=== PATIENT | female | born 1965 | race Caucasian/White ===

== ENCOUNTER → 2017-02-03 | Outpatient (CLI) | payer OTHER | LOC: MAMMO 10:06 | DX: Z12.31 Encounter for screening mammogram for malignant neoplasm of breast (principal) | CPT/HCPCS: G0202 ==

== ENCOUNTER → 2018-10-04 | Outpatient (CLI) | payer BC | LOC: MAMMO 16:00 | DX: Z12.31 Encounter for screening mammogram for malignant neoplasm of breast (principal) ==

== ENCOUNTER → 2019-07-18 | Outpatient (CLI) | payer BC ==
[2019-07-18 13:00] LABS: URINE APPEARANCE HAZY; URINE COLOR YELLOW; URINE PROTEIN(semi-quant) TRACE mg/dL (NEGATIVE)
[2019-07-18 13:01] LABS: URINE BILIRUBIN NEGATIVE (NEGATIVE); URINE BLOOD TRACE (NEGATIVE); URINE GLUCOSE NEGATIVE (NEGATIVE); URINE KETONE NEGATIVE (NEGATIVE); URINE LEUKOCYTE ESTERASE TRACE (NEGATIVE); URINE NITRATE NEGATIVE (NEGATIVE); URINE UROBILINOGEN NORMAL (NORMAL)
[2019-07-18 13:02] LABS: URINE MUCUS PRESENT (NOT PRESENT)
== END ==
LOC: LAB 12:07
PROVIDERS: Nurse Practitioner
DX: Z87.440 Personal history of urinary (tract) infections (principal)

== ENCOUNTER → 2020-08-23 | Outpatient (CLI) | payer BC | LOC: LAB 11:57 | DX: Z20.822 Contact with and (suspected) exposure to COVID-19 (principal) ==

== ENCOUNTER → 2020-08-26 | Outpatient (CLI) | payer BC | LOC: LAB 09:02 | DX: R50.9 Fever, unspecified (principal); Z20.822 Contact with and (suspected) exposure to COVID-19 ==

== ENCOUNTER 2020-09-29 11:28 | Emergency (ER) | payer BC ==
[2020-09-29] MEDS ORDERED: SERTRALINE HYD100 MG PO (11:42)
[2020-09-29] MEDS ORDERED: ARIPIPRAZOLE10 M1 PO (11:43)
[2020-09-29] MEDS ORDERED: ATORVASTATIN CA10 MG PO (11:43)
[2020-09-29] MEDS ORDERED: JARDIANCE10 MG PO (11:43)
[2020-09-29] MEDS ORDERED: OZEMPIC0.25 MG/0. SQ (11:44)
[2020-09-29] MEDS ORDERED: UNITHROID125 MCG PO (11:44)
[2020-09-29] MEDS ORDERED: NATURE'S BLEND1 TA6 PO (11:45)
[2020-09-29] MEDS ORDERED: ORPHENADRINE C100 MG PO (12:59)
[2020-09-29] MEDS ORDERED: KETOROLAC10 MG PO (12:59)
[2020-09-29 13:30] VITALS: BP 151/61
== END 2020-09-29 13:34 | disposition home or self-care (01) ==
LOC: ED 11:28
DX: M54.12 Radiculopathy, cervical region (principal); E11.9 Type 2 diabetes mellitus without complications; Z79.84 Long term (current) use of oral hypoglycemic drugs
CPT/HCPCS: J1885; J2360

== ENCOUNTER → 2020-10-04 | Outpatient (CLI) | payer BC ==
[2020-09-29 13:30] VITALS: BP 151/61
[~2020-10-04] MED LIST: ARIPIPRAZOLE10 M1 PO; ATORVASTATIN CA10 MG PO; JARDIANCE10 MG PO; KETOROLAC10 MG PO; NATURE'S BLEND1 TA6 PO; ORPHENADRINE C100 MG PO; OZEMPIC0.25 MG/0. SQ; SERTRALINE HYD100 MG PO; UNITHROID125 MCG PO
== END ==
LOC: RAD 16:38
DX: M54.6 Pain in thoracic spine (principal)

== ENCOUNTER 2020-10-11 10:00 | Outpatient (RCR) | payer BC | END 2020-11-01 17:00 | disposition home or self-care (01) | LOC: PT 10:00 | DX: M54.6 Pain in thoracic spine (principal) ==

== ENCOUNTER → 2021-06-25 | Outpatient (CLI) | payer BC | LOC: LAB 19:19 | DX: R30.9 Painful micturition, unspecified (principal) ==

== ENCOUNTER → 2021-08-19 | Outpatient (CLI) | payer BC | LOC: RAD 16:10 | DX: M79.644 Pain in right finger(s) (principal) ==

== ENCOUNTER → 2021-09-30 | Outpatient (CLI) | payer BC | LOC: LAB 15:19 | DX: F32.9 Major depressive disorder, single episode, unspecified (principal); E13.9 Other specified diabetes mellitus without complications; E78.5 Hyperlipidemia, unspecified; F41.1 Generalized anxiety disorder; E03.9 Hypothyroidism, unspecified; E66.9 Obesity, unspecified; M06.9 Rheumatoid arthritis, unspecified; J01.90 Acute sinusitis, unspecified ==

== ENCOUNTER → 2021-11-10 | Outpatient (CLI) | payer BC | LOC: LAB 19:14 | DX: R30.9 Painful micturition, unspecified (principal); R82.998 Other abnormal findings in urine; R31.0 Gross hematuria ==

== ENCOUNTER → 2021-11-21 | Outpatient (CLI) | payer BC ==
[2021-11-21 13:33] LABS: BASO # 0.04 K/mm3 (0.02-0.10); EOS # 0.23 K/mm3 (0.04-0.40); EOS % 2.3 % (1.0-5.0); HEMATOCRIT 42.5 % (37.0-47.0); HEMOGLOBIN 14.1 g/dL (12.5-16.0); LYMPH# 1.67 K/mm3 (1.50-4.00); MEAN CELL VOLUME 92 fl (78-100); MEAN CORPUSCULAR HEMOGLOBIN 31 pg (27-31); MEAN CORPUSCULAR HGB CONC 33 g/dL (33-37); MONO # 0.97 K/mm3 (0.20-0.80); NEU # 7.09 K/mm3 (1.40-6.50); PLATELET COUNT 200 K/mm3 (130-400); RED BLOOD COUNT 4.63 M/mm3 (4.10-5.30); RED CELL DISTRIBUTION WIDTH 13.3 % (11.5-14.5)
[2021-11-21 13:38] LABS: ALBUMIN 4.2 g/dL (3.5-5.0)
[2021-11-21 13:39] LABS: POTASSIUM 3.7 mmol/L (3.5-5.1)
[2021-11-21 13:40] LABS: CALCIUM 9.2 mg/dL (8.3-10.5)
[2021-11-21 13:41] LABS: TOTAL PROTEIN 7.8 g/dL (6.4-8.3)
[2021-11-21 13:43] LABS: TOTAL BILIRUBIN 0.5 mg/dL (0.2-1.2)
[2021-11-21 14:45] LABS: D-DIMER 0.66 mg/L FEU (0.15-0.50)
== END ==
LOC: LAB 13:07 → RAD 13:07
PROVIDERS: Nurse Practitioner Family
DX: M79.661 Pain in right lower leg (principal); M79.662 Pain in left lower leg